=== PATIENT | male | born 1960 | race Caucasian/White ===

== ENCOUNTER 2020-11-01 11:52 | Inpatient (IN) ==
[2020-11-01 16:31] LABS: Basophils # 0.1 10*3/uL (0.0-0.2); Basophils % 0.2 % (0.0-0.8); Hematocrit 42.3 VOL% (42.0-52.0); Hemoglobin 14.5 GM/DL (14.0-18.0); Immature Granulocytes % 1.4 %; Immature Granulocytes Absolute 0.35 #; Lymphocytes # 0.8 10*3/uL (1.4-4.0); Lymphocytes % 3.4 % (21.2-54.2); Mean Corpuscular HGB Conc 34.3 GM/DL (32-36); Mean Corpuscular Volume 87.8 FL (87-102); Mean Platelet Volume 11.3 FL (9.6-12.0); Platelet Count 274 T/CUMM (130-400); Red Blood Count 4.82 MC/CUMM (3.8-5.5); Red Cell Distribution Width 11.9 % (9.3-17.3); White Blood Count 24.7 T/CUMM (4-12)
[2020-11-01 16:50] LABS: Anisocytosis 1+; Atypical Lymphocytes Few; Band Neutrophils 9 % (0-10); Lymphocytes 4 % (20-55); Macrocytosis Slight; Microcytosis 1+; Platelet Estimate Normal; Segmented Neutrophils 79 % (50-85); Total Cells Counted 100
[2020-11-01 17:01] LABS: Albumin 2.5 G/DL (3.4-5.0); Bilirubin,Total 0.6 MG/DL (0.20-1.00); Calcium 9.4 MG/DL (8.5-10.1); Osmolality,Calculated 270.6 MOS/KG (273-304); Potassium 3.7 MMOL/L (3.5-5.1); Thyroid Stimulating Hormone 1.59 uIU/ml (0.358-3.74); Total Protein 7.2 G/DL (6.4-8.2)
[2020-11-01] MEDS ORDERED: SODIUM CHLORIDE 0.9% 1,000 ML IV STA ×2 (17:20→17:57)
[2020-11-01] MEDS ORDERED: MORPHINE 2 MG/1 ML SYRINGE IV STA (17:33)
[2020-11-01] MEDS ORDERED: ONDANSETRON 4 MG/2 ML VIAL IV STA (17:33)
[2020-11-01] MEDS ORDERED: PIPERACILLIN/TAZOBACTAM 3,375 MG in SODIUM CHLORIDE 0.9% 100 ML IV STA (17:35)
[2020-11-01] MEDS ORDERED: ENOXAPARIN 100 MG/ML SYRINGE SUBCUT STA (17:36)
[2020-11-01] MEDS ORDERED: FLUCONAZOLE INJ 200 MG/100 ML PREMIX IV ONE (17:41)
[2020-11-01] MEDS ORDERED: INSULIN REGULAR 100 UNIT/ML IV STA (17:42)
[2020-11-01] MEDS ORDERED: ONDANSETRON 4 MG/2 ML VIAL IV PRN (17:57)
[2020-11-01] MEDS ORDERED: GLUCAGON 1 MG VIAL IM PRN (17:57)
[2020-11-01] MEDS ORDERED: hydrALAZINE 20 MG/1 ML VIAL IV PRN (17:57)
[2020-11-01] MEDS ORDERED: ACETAMINOPHEN 325 MG TABLET PO PRN (17:57)
[2020-11-01] MEDS ORDERED: DEXTROSE 50% 25 GM/50 ML VIAL IV PRN (17:57)
[2020-11-01 18:32] LABS: Bilirubin,Urine Negative (Negative); Blood, Urine Moderate mg/dL (Negative); Glucose,Urine (UA) >=500 mg/dL (Negative); Hyaline Casts,Urine 1 /LPF (0-3); Ketones,Urine 80 mg/dL (Negative); Mucus,Urine Occasional /LPF (Occasional); Nitrite,Urine Negative (Negative); Protein,Urine 30 MG/DL; RBC,Urine 6 /HPF (0-4); Squamous Epithelial Cell,Urine Occasional /HPF (0-10); Urine Appearance Slightly Hazy (Clear); Urine Color Straw (Yellow); Urine Specific Gravity 1.035 (1.001-1.035); Urine Urobilinogen < 2.0 EU/DL (0.2-1.0)
[2020-11-01 18:37] LABS: Risk Ratio 13.36
[2020-11-01] MEDS: SODIUM CHLORIDE 0.9% 1,000 ML IV SCH (20:57)
[2020-11-01] MEDS: VANCOMYCIN INJ 1,750 MG in SODIUM CHLORIDE 0.9% 500 ML IV SCH (21:23)
[2020-11-01 21:25] LABS: ABG HCO3 15.2 MMOL/L (20-26); ABG Oxygen Saturation 97.2 % (95-100); ABG PH 7.389 (7.35-7.45); ABG PO2 91.5 MM HG (80-95); ABG TCO2 9.7 MMOL/L (23-27)
[2020-11-01 21:28] LABS: ABG PCO2 18.4 MM HG (35-48)
[2020-11-01 23:46] LABS: Calcium 8.7 MG/DL (8.5-10.1); Osmolality,Calculated 279.8 MOS/KG (273-304); Potassium 3.2 MMOL/L (3.5-5.1)
[2020-11-02] MEDS: INSULIN REGULAR 100 UNIT/ML SUBCUT SCH ×6 (01:25→21:20)
[2020-11-02] MEDS ORDERED: PIPERACILLIN/TAZOBACTAM 3,375 MG in SODIUM CHLORIDE 0.9% 100 ML IV SCH (02:00)
[2020-11-02 02:14] LABS: Basophils # 0.2 10*3/uL (0.0-0.2); Basophils % 0.5 % (0.0-0.8); Eosinophils # 0.1 10*3/uL (0.0-0.87); Eosinophils % 0.3 % (0.00-10.9); Immature Granulocytes % 2.7 %; Immature Granulocytes Absolute 0.87 #; Lymphocytes # 0.7 10*3/uL (1.4-4.0); Lymphocytes % 2.3 % (21.2-54.2); Mean Corpuscular HGB Conc 34.4 GM/DL (32-36); Mean Corpuscular Volume 89.3 FL (87-102); Mean Platelet Volume 11.5 FL (9.6-12.0); Monocytes % 13.5 % (1.7-12.7); Neutrophils % 80.7 % (38.7-73.9); Platelet Count 240 T/CUMM (130-400); Red Blood Count 4.03 MC/CUMM (3.8-5.5); Red Cell Distribution Width 12.1 % (9.3-17.3); White Blood Count 32.1 T/CUMM (4-12)
[2020-11-02 02:18] LABS: Hemoglobin 12.4 GM/DL (14.0-18.0)
[2020-11-02 02:31] LABS: Calcium 8.2 MG/DL (8.5-10.1); Osmolality,Calculated 270.6 MOS/KG (273-304); Potassium 3.2 MMOL/L (3.5-5.1)
[2020-11-02 02:41] LABS: Platelet Estimate Normal
[2020-11-02] MEDS: ENOXAPARIN 120 MG/0.8 ML SYRINGE SUBCUT SCH ×2 (05:59→16:30)
[2020-11-02] MEDS ORDERED: POTASSIUM CHLORIDE 20 MEQ TABLET PO ONE (07:45)
[2020-11-02] MEDS: SODIUM CHLORIDE 0.9% 1,000 ML IV SCH (08:03)
[2020-11-02] MEDS: LOSARTAN 50 MG TABLET PO SCH (08:03)
[2020-11-02] MEDS: MEROPENEM 500 MG in SODIUM CHLORIDE 0.9% 100 ML IV SCH ×3 (08:38→20:18)
[2020-11-02 09:41] LABS: Calcium 8.7 MG/DL (8.5-10.1); Osmolality,Calculated 276.7 MOS/KG (273-304); Potassium 3.1 MMOL/L (3.5-5.1)
[2020-11-02] MEDS: VANCOMYCIN INJ 1,750 MG in SODIUM CHLORIDE 0.9% 500 ML IV SCH ×2 (10:13→21:20)
[2020-11-02] MEDS: POTASSIUM CHLORIDE 20 MEQ TABLET PO PRN ×2 (10:13→12:07)
[2020-11-02] MEDS ORDERED: SODIUM CHLOR 0.9% KCL 20 MEQ 20 MEQ/1,000 ML BAG IV SCH (14:30)
[2020-11-02] MEDS: POTASSIUM CHLORIDE INJ 30 MEQ in SODIUM CHLORIDE 0.9% 1,000 ML IV SCH ×2 (14:51→21:22)
[2020-11-02 14:54] LABS: Calcium 8.3 MG/DL (8.5-10.1); Osmolality,Calculated 271.8 MOS/KG (273-304); Potassium 3.6 MMOL/L (3.5-5.1)
[2020-11-02] MEDS ORDERED: INSULIN GLARGINE 100 UNIT/ML SUBCUT SCH (21:00)
[2020-11-03] MEDS: MEROPENEM 500 MG in SODIUM CHLORIDE 0.9% 100 ML IV SCH ×4 (01:29→20:44)
[2020-11-03] MEDS: ENOXAPARIN 120 MG/0.8 ML SYRINGE SUBCUT SCH (04:59)
[2020-11-03 06:04] LABS: Basophils # 0.2 10*3/uL (0.0-0.2); Basophils % 0.6 % (0.0-0.8); Hematocrit 33.2 VOL% (42.0-52.0); Hemoglobin 11.6 GM/DL (14.0-18.0); Immature Granulocytes % 4.3 %; Immature Granulocytes Absolute 1.19 #; Lymphocytes # 2.3 10*3/uL (1.4-4.0); Lymphocytes % 8.4 % (21.2-54.2); Mean Corpuscular HGB Conc 34.9 GM/DL (32-36); Mean Corpuscular Volume 87.1 FL (87-102); Mean Platelet Volume 11.7 FL (9.6-12.0); Monocytes % 14.8 % (1.7-12.7); Neutrophils % 71.9 % (38.7-73.9); Platelet Count 220 T/CUMM (130-400); Red Blood Count 3.81 MC/CUMM (3.8-5.5); White Blood Count 27.4 T/CUMM (4-12)
[2020-11-03 06:26] LABS: Hypochromasia Slight; Lymphocytes 2 % (20-55); Microcytosis Slight; Platelet Estimate Adequate; Segmented Neutrophils 88 % (50-85); Total Cells Counted 100
[2020-11-03 06:27] LABS: Calcium 8.2 MG/DL (8.5-10.1); Osmolality,Calculated 270.8 MOS/KG (273-304); Potassium 3.5 MMOL/L (3.5-5.1)
[2020-11-03] MEDS: POTASSIUM CHLORIDE INJ 30 MEQ in SODIUM CHLORIDE 0.9% 1,000 ML IV SCH ×2 (07:32→17:33)
[2020-11-03] MEDS: INSULIN REGULAR 100 UNIT/ML SUBCUT SCH ×4 (08:44→20:52)
[2020-11-03] MEDS: LOSARTAN 50 MG TABLET PO SCH (08:51)
[2020-11-03] MEDS: VANCOMYCIN INJ 1,750 MG in SODIUM CHLORIDE 0.9% 500 ML IV SCH ×2 (12:05→22:28)
[2020-11-03] MEDS: APIXABAN 5 MG TABLET PO SCH (20:44)
[2020-11-03] MEDS: INSULIN GLARGINE 100 UNIT/ML SUBCUT SCH (20:52)
[2020-11-03] MEDS ORDERED: INSULIN GLARGINE 100 UNIT/ML SUBCUT SCH (21:00)
[2020-11-03] MEDS ORDERED: APIXABAN 5 MG TABLET PO SCH (21:00)
[2020-11-04] MEDS: MEROPENEM 500 MG in SODIUM CHLORIDE 0.9% 100 ML IV SCH ×2 (01:17→07:51)
[2020-11-04] MEDS: POTASSIUM CHLORIDE INJ 30 MEQ in SODIUM CHLORIDE 0.9% 1,000 ML IV SCH ×4 (01:23→17:44)
[2020-11-04 05:21] LABS: Basophils # 0.1 10*3/uL (0.0-0.2); Basophils % 0.6 % (0.0-0.8); Eosinophils # 0.1 10*3/uL (0.0-0.87); Eosinophils % 0.3 % (0.00-10.9); Hematocrit 32.1 VOL% (42.0-52.0); Immature Granulocytes % 10.2 %; Immature Granulocytes Absolute 2.37 #; Lymphocytes # 2.5 10*3/uL (1.4-4.0); Lymphocytes % 10.8 % (21.2-54.2); Mean Corpuscular HGB Conc 34.3 GM/DL (32-36); Mean Corpuscular Volume 87.5 FL (87-102); Mean Platelet Volume 10.9 FL (9.6-12.0); Monocytes % 11.6 % (1.7-12.7); Neutrophils % 66.5 % (38.7-73.9); Platelet Count 236 T/CUMM (130-400); Red Blood Count 3.67 MC/CUMM (3.8-5.5); Red Cell Distribution Width 11.9 % (9.3-17.3); White Blood Count 23.2 T/CUMM (4-12)
[2020-11-04 05:47] LABS: Band Neutrophils 1 % (0-10); Hypochromasia Slight; Lymphocytes 13 % (20-55); Microcytosis Slight; Platelet Estimate Adequate; Segmented Neutrophils 77 % (50-85); Total Cells Counted 100
[2020-11-04 06:06] LABS: Calcium 7.5 MG/DL (8.5-10.1); Osmolality,Calculated 273.1 MOS/KG (273-304)
[2020-11-04] MEDS ORDERED: POTASSIUM CHLORIDE 20 MEQ TABLET PO ONE (07:30)
[2020-11-04] MEDS: INSULIN REGULAR 100 UNIT/ML SUBCUT SCH ×4 (07:49→21:05)
[2020-11-04] MEDS: VANCOMYCIN INJ 1,750 MG in SODIUM CHLORIDE 0.9% 500 ML IV SCH (09:04)
[2020-11-04] MEDS: LOSARTAN 50 MG TABLET PO SCH (09:17)
[2020-11-04] MEDS: APIXABAN 5 MG TABLET PO SCH ×2 (09:17→21:04)
[2020-11-04] MEDS: sitaGLIPtin 100 MG TABLET PO SCH (09:18)
[2020-11-04] MEDS: cefTRIAXone 2,000 MG in SODIUM CHLORIDE 0.9% 100 ML IV SCH (14:51)
[2020-11-04] MEDS: INSULIN GLARGINE 100 UNIT/ML SUBCUT SCH (21:05)
[2020-11-05] MEDS: POTASSIUM CHLORIDE INJ 30 MEQ in SODIUM CHLORIDE 0.9% 1,000 ML IV SCH ×3 (01:59→15:25)
[2020-11-05 06:04] LABS: Basophils % 0.1 % (0.0-0.8); Eosinophils # 0.1 10*3/uL (0.0-0.87); Eosinophils % 0.4 % (0.00-10.9); Hemoglobin 11.2 GM/DL (14.0-18.0); Immature Granulocytes % 13.5 %; Immature Granulocytes Absolute 3.16 #; Lymphocytes # 2.4 10*3/uL (1.4-4.0); Lymphocytes % 10.3 % (21.2-54.2); Mean Corpuscular Volume 87.2 FL (87-102); Monocytes % 10.1 % (1.7-12.7); Neutrophils % 65.6 % (38.7-73.9); Platelet Count 268 T/CUMM (130-400); Red Blood Count 3.67 MC/CUMM (3.8-5.5); Red Cell Distribution Width 12.3 % (9.3-17.3); White Blood Count 23.4 T/CUMM (4-12)
[2020-11-05 06:24] LABS: Hypochromasia 1+; Lymphocytes 13 % (20-55); Microcytosis 1+; Platelet Estimate Adequate; Segmented Neutrophils 76 % (50-85); Total Cells Counted 100
[2020-11-05 06:36] LABS: Calcium 7.7 MG/DL (8.5-10.1); Osmolality,Calculated 269.2 MOS/KG (273-304); Potassium 3.1 MMOL/L (3.5-5.1)
[2020-11-05] MEDS ORDERED: APIXABAN 5 MG TABLET PO SCH (09:00)
[2020-11-05] MEDS: LOSARTAN 50 MG TABLET PO SCH (09:15)
[2020-11-05] MEDS: sitaGLIPtin 100 MG TABLET PO SCH (09:16)
[2020-11-05] MEDS: POTASSIUM CHLORIDE 20 MEQ TABLET PO PRN (09:16)
[2020-11-05] MEDS: INSULIN REGULAR 100 UNIT/ML SUBCUT SCH ×4 (09:17→21:08)
[2020-11-05] MEDS: cefTRIAXone 2,000 MG in SODIUM CHLORIDE 0.9% 100 ML IV SCH (09:19)
[2020-11-05] MEDS ORDERED: POTASSIUM CHLORIDE 20 MEQ TABLET PO ONE (14:30)
[2020-11-05] MEDS: ENOXAPARIN 40 MG/0.4 ML SYRINGE SUBCUT SCH (21:06)
[2020-11-05] MEDS: INSULIN GLARGINE 100 UNIT/ML SUBCUT SCH (21:07)
[2020-11-06] MEDS: POTASSIUM CHLORIDE INJ 30 MEQ in SODIUM CHLORIDE 0.9% 1,000 ML IV SCH ×2 (01:52→11:32)
[2020-11-06] MEDS: INSULIN REGULAR 100 UNIT/ML SUBCUT SCH ×4 (07:59→21:49)
[2020-11-06] MEDS: cefTRIAXone 2,000 MG in SODIUM CHLORIDE 0.9% 100 ML IV SCH (08:00)
[2020-11-06] MEDS: LOSARTAN 50 MG TABLET PO SCH (08:02)
[2020-11-06] MEDS: sitaGLIPtin 100 MG TABLET PO SCH (08:02)
[2020-11-06] MEDS ORDERED: POTASSIUM CHLORIDE 20 MEQ TABLET PO SCH (09:00)
[2020-11-06 09:05] LABS: Basophils % 0.2 % (0.0-0.8); Eosinophils # 0.1 10*3/uL (0.0-0.87); Eosinophils % 0.3 % (0.00-10.9); Hematocrit 30.9 VOL% (42.0-52.0); Hemoglobin 10.8 GM/DL (14.0-18.0); Immature Granulocytes % 11.4 %; Immature Granulocytes Absolute 2.97 #; Lymphocytes # 3.2 10*3/uL (1.4-4.0); Mean Corpuscular Volume 87.8 FL (87-102); Mean Platelet Volume 10.5 FL (9.6-12.0); Monocytes % 9.5 % (1.7-12.7); Neutrophils % 66.6 % (38.7-73.9); Platelet Count 331 T/CUMM (130-400); Red Blood Count 3.52 MC/CUMM (3.8-5.5); Red Cell Distribution Width 12.9 % (9.3-17.3); White Blood Count 26.2 T/CUMM (4-12)
[2020-11-06 09:29] LABS: Calcium 7.6 MG/DL (8.5-10.1); Osmolality,Calculated 267.4 MOS/KG (273-304); Potassium 3.5 MMOL/L (3.5-5.1)
[2020-11-06 10:37] LABS: Band Neutrophils 1 % (0-10); Lymphocytes 4 % (20-55); Platelet Estimate Normal; Polychromasia Slight; Segmented Neutrophils 84 % (50-85); Total Cells Counted 100
[2020-11-06] MEDS: POTASSIUM CHLORIDE 20 MEQ TABLET PO SCH (21:48)
[2020-11-06] MEDS: INSULIN GLARGINE 100 UNIT/ML SUBCUT SCH (21:49)
[2020-11-06] MEDS: ENOXAPARIN 40 MG/0.4 ML SYRINGE SUBCUT SCH (21:51)
[2020-11-07 06:24] LABS: Basophils % 0.2 % (0.0-0.8); Eosinophils # 0.1 10*3/uL (0.0-0.87); Eosinophils % 0.5 % (0.00-10.9); Hematocrit 31.8 VOL% (42.0-52.0); Hemoglobin 10.5 GM/DL (14.0-18.0); Immature Granulocytes % 11.9 %; Immature Granulocytes Absolute 3.12 #; Lymphocytes # 3.4 10*3/uL (1.4-4.0); Lymphocytes % 12.9 % (21.2-54.2); Mean Corpuscular Volume 90.9 FL (87-102); Mean Platelet Volume 10.8 FL (9.6-12.0); Monocytes % 8.6 % (1.7-12.7); Neutrophils % 65.9 % (38.7-73.9); Platelet Count 405 T/CUMM (130-400); Red Cell Distribution Width 13.2 % (9.3-17.3); White Blood Count 26.3 T/CUMM (4-12)
[2020-11-07 06:27] LABS: Calcium 7.9 MG/DL (8.5-10.1); Osmolality,Calculated 268.1 MOS/KG (273-304); Potassium 3.7 MMOL/L (3.5-5.1)
[2020-11-07] MEDS: INSULIN REGULAR 100 UNIT/ML SUBCUT SCH ×4 (08:03→21:58)
[2020-11-07] MEDS: LOSARTAN 50 MG TABLET PO SCH (08:04)
[2020-11-07] MEDS: POTASSIUM CHLORIDE 20 MEQ TABLET PO SCH ×2 (08:04→21:58)
[2020-11-07] MEDS: sitaGLIPtin 100 MG TABLET PO SCH (08:04)
[2020-11-07] MEDS: cefTRIAXone 2,000 MG in SODIUM CHLORIDE 0.9% 100 ML IV SCH (08:05)
[2020-11-07 11:57] LABS: Band Neutrophils 1 % (0-10); Lymphocytes 9 % (20-55); Platelet Estimate Normal; Segmented Neutrophils 75 % (50-85); Total Cells Counted 100
[2020-11-07 11:58] LABS: Polychromasia Slight
[2020-11-07] MEDS: INSULIN GLARGINE 100 UNIT/ML SUBCUT SCH (21:59)
[2020-11-07] MEDS: ENOXAPARIN 40 MG/0.4 ML SYRINGE SUBCUT SCH (21:59)
[2020-11-08 05:16] LABS: Basophils # 0.2 10*3/uL (0.0-0.2); Basophils % 0.7 % (0.0-0.8); Eosinophils # 0.1 10*3/uL (0.0-0.87); Eosinophils % 0.6 % (0.00-10.9); Hematocrit 32.4 VOL% (42.0-52.0); Hemoglobin 10.8 GM/DL (14.0-18.0); Immature Granulocytes Absolute 2.25 #; Lymphocytes # 3.2 10*3/uL (1.4-4.0); Lymphocytes % 14.1 % (21.2-54.2); Mean Corpuscular HGB Conc 33.3 GM/DL (32-36); Mean Corpuscular Volume 89.8 FL (87-102); Monocytes % 8.6 % (1.7-12.7); Platelet Count 476 T/CUMM (130-400); Red Blood Count 3.61 MC/CUMM (3.8-5.5); Red Cell Distribution Width 13.1 % (9.3-17.3); White Blood Count 22.6 T/CUMM (4-12)
[2020-11-08 05:38] LABS: Calcium 8.3 MG/DL (8.5-10.1); Osmolality,Calculated 267.2 MOS/KG (273-304); Potassium 4.2 MMOL/L (3.5-5.1)
[2020-11-08 05:53] LABS: Band Neutrophils 3 % (0-10); Eosinophils 1 % (0-10); Lymphocytes 13 % (20-55); Myelocytes 2 %; Platelet Estimate Increased; Segmented Neutrophils 70 % (50-85); Total Cells Counted 100
[2020-11-08] MEDS: INSULIN REGULAR 100 UNIT/ML SUBCUT SCH ×4 (07:42→21:50)
[2020-11-08] MEDS ORDERED: THROMBIN TOPICAL (RECOMBINANT) 5,000 UNIT VIAL TOP ONE (08:10)
[2020-11-08] MEDS ORDERED: LIDOCAINE 1% 20 ML VIAL ONE (08:11)
[2020-11-08] MEDS ORDERED: HEPARIN 5,000 UNIT/1 ML VIAL ONE (08:11)
[2020-11-08] MEDS ORDERED: BUPIVACAINE 0.5% 50 ML VIAL ONE (08:11)
[2020-11-08] MEDS ORDERED: LIDOCAINE 2% 5 ML VIAL ONE (08:26)
[2020-11-08] MEDS ORDERED: DEXAMETHASONE 4 MG/1 ML VIAL ONE (08:26)
[2020-11-08] MEDS ORDERED: SUCCINYLCHOLINE 200 MG/10 ML VIAL ONE (08:26)
[2020-11-08] MEDS ORDERED: ROCURONIUM 50 MG/5 ML VIAL IV ONE (08:26)
[2020-11-08] MEDS ORDERED: fentaNYL 100 MCG/2 ML VIAL ONE ×2 (08:26→10:12)
[2020-11-08] MEDS ORDERED: ETOMIDATE 40 MG/20 ML VIAL IV ONE (08:26)
[2020-11-08] MEDS ORDERED: propofoL 200 MG/20 ML VIAL IV ONE (08:26)
[2020-11-08] MEDS ORDERED: MIDAZOLAM 2 MG/2 ML VIAL ONE (08:26)
[2020-11-08] MEDS ORDERED: ONDANSETRON 4 MG/2 ML VIAL ONE (08:26)
[2020-11-08] MEDS ORDERED: LACTATED RINGERS 1,000 ML IV SCH (09:00)
[2020-11-08] MEDS ORDERED: PHENYLEPHRINE 1 MG/10 ML SYRINGE IV ONE ×3 (09:06→10:46)
[2020-11-08] MEDS ORDERED: ePHEDrine 50 MG/ML VIAL ONE (09:11)
[2020-11-08] MEDS ORDERED: KETOROLAC 30 MG/1 ML VIAL ONE (10:39)
[2020-11-08] MEDS ORDERED: LACTATED RINGERS 1,000 ML IV ONE (10:39)
[2020-11-08] MEDS ORDERED: SEVOFLURANE 1 UNIT/15 MINUTE INH ONE (10:46)
[2020-11-08] MEDS ORDERED: HYDROmorphone 2 MG/1 ML VIAL IV PRN ×2 (10:54)
[2020-11-08] MEDS: LOSARTAN 50 MG TABLET PO SCH (12:01)
[2020-11-08] MEDS: sitaGLIPtin 100 MG TABLET PO SCH (12:02)
[2020-11-08] MEDS: POTASSIUM CHLORIDE 20 MEQ TABLET PO SCH ×2 (12:02→21:25)
[2020-11-08] MEDS: cefTRIAXone 2,000 MG in SODIUM CHLORIDE 0.9% 100 ML IV SCH (12:06)
[2020-11-08] MEDS: KETOROLAC 10 MG TABLET PO SCH ×3 (12:10→23:59)
[2020-11-08] MEDS ORDERED: GLUCAGON 1 MG VIAL IM PRN (17:58)
[2020-11-08] MEDS ORDERED: DEXTROSE 50% 25 GM/50 ML VIAL IV PRN (17:58)
[2020-11-08] MEDS: ENOXAPARIN 40 MG/0.4 ML SYRINGE SUBCUT SCH (21:24)
[2020-11-08] MEDS: ZINC OXIDE PASTE 113 GM TUBE TOP SCH (21:25)
[2020-11-08] MEDS: INSULIN GLARGINE 100 UNIT/ML SUBCUT SCH (21:50)
[2020-11-09] MEDS: KETOROLAC 10 MG TABLET PO SCH ×4 (05:01→23:24)
[2020-11-09 06:42] LABS: Basophils % 0.2 % (0.0-0.8); Eosinophils # 0.1 10*3/uL (0.0-0.87); Eosinophils % 0.5 % (0.00-10.9); Hematocrit 29.6 VOL% (42.0-52.0); Hemoglobin 9.8 GM/DL (14.0-18.0); Immature Granulocytes % 5.6 %; Immature Granulocytes Absolute 1.14 #; Lymphocytes # 2.4 10*3/uL (1.4-4.0); Mean Corpuscular HGB Conc 33.1 GM/DL (32-36); Mean Corpuscular Volume 90.8 FL (87-102); Mean Platelet Volume 9.7 FL (9.6-12.0); Monocytes % 9.6 % (1.7-12.7); NRBC # 0.03 10*3/uL; Neutrophils % 72.1 % (38.7-73.9); Platelet Count 458 T/CUMM (130-400); Red Blood Count 3.26 MC/CUMM (3.8-5.5); Red Cell Distribution Width 13.2 % (9.3-17.3); White Blood Count 20.2 T/CUMM (4-12)
[2020-11-09 07:04] LABS: Band Neutrophils 3 % (0-10); Lymphocytes 12 % (20-55); Segmented Neutrophils 76 % (50-85); Total Cells Counted 100
[2020-11-09 07:05] LABS: Hypochromasia 1+; Microcytosis 1+; Platelet Estimate Increased
[2020-11-09 07:16] LABS: Osmolality,Calculated 267.4 MOS/KG (273-304); Potassium 4.1 MMOL/L (3.5-5.1)
[2020-11-09] MEDS: INSULIN REGULAR 100 UNIT/ML SUBCUT SCH ×4 (08:37→21:15)
[2020-11-09] MEDS: LOSARTAN 50 MG TABLET PO SCH (08:37)
[2020-11-09] MEDS: cefTRIAXone 2,000 MG in SODIUM CHLORIDE 0.9% 100 ML IV SCH (08:37)
[2020-11-09] MEDS: sitaGLIPtin 100 MG TABLET PO SCH (08:37)
[2020-11-09] MEDS: ZINC OXIDE PASTE 113 GM TUBE TOP SCH ×2 (08:38→21:15)
[2020-11-09] MEDS: POTASSIUM CHLORIDE 20 MEQ TABLET PO SCH ×2 (08:38→21:14)
[2020-11-09] MEDS ORDERED: PHENOL 1.4% THROAT SPRAY 177 ML BOTTLE PO PRN (19:36)
[2020-11-09] MEDS: APIXABAN 5 MG TABLET PO SCH (21:14)
[2020-11-09] MEDS: INSULIN GLARGINE 100 UNIT/ML SUBCUT SCH (21:14)
[2020-11-10] MEDS: KETOROLAC 10 MG TABLET PO SCH ×3 (05:20→18:10)
[2020-11-10 05:41] LABS: Basophils # 0.1 10*3/uL (0.0-0.2); Basophils % 0.6 % (0.0-0.8); Eosinophils # 0.2 10*3/uL (0.0-0.87); Eosinophils % 0.9 % (0.00-10.9); Hematocrit 30.1 VOL% (42.0-52.0); Hemoglobin 9.8 GM/DL (14.0-18.0); Immature Granulocytes % 5.4 %; Immature Granulocytes Absolute 0.94 #; Lymphocytes # 2.6 10*3/uL (1.4-4.0); Lymphocytes % 14.6 % (21.2-54.2); Mean Corpuscular HGB Conc 32.6 GM/DL (32-36); Mean Corpuscular Volume 93.2 FL (87-102); Mean Platelet Volume 10.1 FL (9.6-12.0); Monocytes % 10.4 % (1.7-12.7); Neutrophils % 68.1 % (38.7-73.9); Platelet Count 507 T/CUMM (130-400); Red Blood Count 3.23 MC/CUMM (3.8-5.5); Red Cell Distribution Width 13.3 % (9.3-17.3); White Blood Count 17.5 T/CUMM (4-12)
[2020-11-10 06:00] LABS: Calcium 8.4 MG/DL (8.5-10.1); Osmolality,Calculated 268.2 MOS/KG (273-304); Potassium 5.2 MMOL/L (3.5-5.1)
[2020-11-10 06:09] LABS: Eosinophils 1 % (0-10); Hypochromasia 1+; Lymphocytes 19 % (20-55); Microcytosis 1+; Platelet Estimate Adequate; Segmented Neutrophils 76 % (50-85); Total Cells Counted 100
[2020-11-10] MEDS: INSULIN REGULAR 100 UNIT/ML SUBCUT SCH ×4 (09:12→21:46)
[2020-11-10] MEDS: LOSARTAN 50 MG TABLET PO SCH (09:13)
[2020-11-10] MEDS: sitaGLIPtin 100 MG TABLET PO SCH (09:13)
[2020-11-10] MEDS: APIXABAN 5 MG TABLET PO SCH ×2 (09:13→21:46)
[2020-11-10] MEDS: cefTRIAXone 2,000 MG in SODIUM CHLORIDE 0.9% 100 ML IV SCH (09:14)
[2020-11-10] MEDS: ZINC OXIDE PASTE 113 GM TUBE TOP SCH ×2 (09:15→21:47)
[2020-11-10] MEDS: INSULIN GLARGINE 100 UNIT/ML SUBCUT SCH (21:46)
[2020-11-11] MEDS: KETOROLAC 10 MG TABLET PO SCH ×5 (00:06→23:36)
[2020-11-11 05:40] LABS: Basophils # 0.1 10*3/uL (0.0-0.2); Basophils % 0.6 % (0.0-0.8); Eosinophils # 0.1 10*3/uL (0.0-0.87); Hemoglobin 9.4 GM/DL (14.0-18.0); Immature Granulocytes % 3.7 %; Immature Granulocytes Absolute 0.47 #; Lymphocytes # 2.2 10*3/uL (1.4-4.0); Lymphocytes % 17.6 % (21.2-54.2); Mean Corpuscular HGB Conc 32.4 GM/DL (32-36); Mean Corpuscular Volume 92.1 FL (87-102); Mean Platelet Volume 9.6 FL (9.6-12.0); Monocytes % 10.2 % (1.7-12.7); Neutrophils % 66.9 % (38.7-73.9); Platelet Count 516 T/CUMM (130-400); Red Blood Count 3.15 MC/CUMM (3.8-5.5); Red Cell Distribution Width 13.1 % (9.3-17.3); White Blood Count 12.6 T/CUMM (4-12)
[2020-11-11 06:08] LABS: Calcium 8.1 MG/DL (8.5-10.1); Osmolality,Calculated 269.4 MOS/KG (273-304); Potassium 3.9 MMOL/L (3.5-5.1)
[2020-11-11] MEDS: sitaGLIPtin 100 MG TABLET PO SCH (08:41)
[2020-11-11] MEDS: INSULIN REGULAR 100 UNIT/ML SUBCUT SCH ×4 (08:41→21:26)
[2020-11-11] MEDS: APIXABAN 5 MG TABLET PO SCH ×2 (08:41→21:25)
[2020-11-11] MEDS: LOSARTAN 50 MG TABLET PO SCH (08:41)
[2020-11-11] MEDS: cefTRIAXone 2,000 MG in SODIUM CHLORIDE 0.9% 100 ML IV SCH (08:42)
[2020-11-11] MEDS: ZINC OXIDE PASTE 113 GM TUBE TOP SCH ×2 (08:42→21:26)
[2020-11-11] MEDS: TAMSULOSIN 0.4 MG CAPSULE PO SCH (13:06)
[2020-11-11] MEDS ORDERED: INSULIN GLARGINE 100 UNIT/ML SUBCUT SCH (21:00)
[2020-11-12] MEDS: KETOROLAC 10 MG TABLET PO SCH ×2 (05:26→12:05)
[2020-11-12 06:32] LABS: Basophils % 0.3 % (0.0-0.8); Eosinophils # 0.1 10*3/uL (0.0-0.87); Eosinophils % 1.3 % (0.00-10.9); Hematocrit 29.9 VOL% (42.0-52.0); Hemoglobin 9.9 GM/DL (14.0-18.0); Immature Granulocytes % 1.7 %; Immature Granulocytes Absolute 0.19 #; Lymphocytes # 2.4 10*3/uL (1.4-4.0); Mean Corpuscular HGB Conc 33.1 GM/DL (32-36); Mean Corpuscular Volume 90.6 FL (87-102); Mean Platelet Volume 9.7 FL (9.6-12.0); Monocytes % 11.7 % (1.7-12.7); Platelet Count 582 T/CUMM (130-400); Red Cell Distribution Width 12.9 % (9.3-17.3)
[2020-11-12 06:59] LABS: Calcium 8.1 MG/DL (8.5-10.1); Osmolality,Calculated 271.8 MOS/KG (273-304); Potassium 3.6 MMOL/L (3.5-5.1)
[2020-11-12] MEDS: INSULIN REGULAR 100 UNIT/ML SUBCUT SCH ×2 (07:28→12:05)
[2020-11-12] MEDS: LOSARTAN 50 MG TABLET PO SCH (08:22)
[2020-11-12] MEDS: TAMSULOSIN 0.4 MG CAPSULE PO SCH (08:23)
[2020-11-12] MEDS: sitaGLIPtin 100 MG TABLET PO SCH (08:23)
[2020-11-12] MEDS: cefTRIAXone 2,000 MG in SODIUM CHLORIDE 0.9% 100 ML IV SCH (08:23)
[2020-11-12] MEDS: APIXABAN 5 MG TABLET PO SCH (08:23)
[2020-11-12] MEDS: ZINC OXIDE PASTE 113 GM TUBE TOP SCH (08:23)
[2020-11-12 12:14] VITALS: BP 144/58
== END 2020-11-12 13:55 | disposition home health service (06) | DRG 253 ==
LOC: N.ED 11:52 → N.EDINP 17:57 → SUATTDRO 17:57 → N.EDINP 22:08 → N.3E 22:40
PROVIDERS: ADMIT Hospitalist; ATTEND Internal Medicine